=== PATIENT | male | born 1960 | race Caucasian/White ===

== ENCOUNTER 2017-06-28 13:52 | Emergency (ER) | payer OTHER ==
--- NOTE | 2017-06-28 16:16 | ER Document Report ---
HPI - HPI Patient complains to provider of: Bruise to right ankle injury to right calf a week ago no injury to ankle Onset: Yesterday Onset/Duration: Gradual Quality of pain: No pain - No pain in ankle mild pain in right calf Pain Level: Denies Context: Patient states he has been seen in the ED because he has a right swollen bruised ankle but he did not injure his ankle he states that he pulled a calf muscle about a week and a half ago and then he lunged on a curb last Saturday and then gradually he developed this bruise on his ankle. He denies any pain at all to his ankle. States he thought maybe it was a poisonous spider bite or a blood clot in his ankle. Temperature 98.2 pulse 66 respirations 18 pulse ox 96% blood pressure 123/83 in [place]. Associated Symptoms: Other - Mild tenderness to right calf no pain in right ankle or discoloration is Exacerbated by: Denies Relieved by: Denies Similar symptoms previously: No Recently seen / treated by doctor: No - ROS ROS below otherwise negative: Yes - CONSTITUTIONAL Constitutional: DENIES: Fever, Chills - EENT EENT: DENIES: Sore Throat, Ear Pain, Nasal Drainage-Clear, Nasal Drainage- Purulent, Congestion, Eye problems - CARDIOVASCULAR Cardiovascular: DENIES: Chest pain - RESPIRATORY Respiratory: DENIES: Trouble Breathing, Coughing - GASTROINTESTINAL Gastrointestinal: DENIES: Abdominal Pain, Nausea, Patient vomiting, Diarrhea, Constipation, Black / Bloody Stools - URINARY Urinary: DENIES: Dysuria, Urgency, Frequency - REPRODUCTIVE Reproductive: DENIES: :, Postmenopausal, Abnormal bleeding / discharge - MUSCULOSKELETAL Musculoskeletal: REPORTS: Extremity pain - Mild tenderness to right calf. DENIES: Back Pain, Neck Pain, Swelling - DERM Skin Color: Ecchymosis - Right ankle Skin Problems: None Past Medical History - General Information source: Patient - Social History Smoking Status: Former Smoker Cigarette use (# per day): No Chew tobacco use (# tins/day): No Smoking Education Provided: No Frequency of alcohol use: Occasional Drug Abuse: None Occupation: Retired Lives with: Spouse/Significant other Family History: Reviewed & Not Pertinent Patient has suicidal ideation: No Patient has homicidal ideation: No - Medical History Medical History: Other - Rheumatic fever as a child - Past Medical History Cardiac Medical History: Reports: None Pulmonary Medical History: Reports: None EENT Medical History: Reports: None Neurological Medical History: Reports: None Endocrine Medical History: Reports: None Renal/ Medical History: Reports: None Malignancy Medical History: Reports None GI Medical History: Reports: None Musculoskeltal Medical History: Reports Hx Arthritis, Reports Hx Musculoskeletal Deformity, Reports Hx Musculoskeletal Trauma Skin Medical History: Reports None Psychiatric Medical History: Reports: None Traumatic Medical History: Reports: Hx Fractures - Arms and thumb Infectious Medical History: Reports: None Past Surgical History: Reports: Hx Adenoidectomy, Hx Tonsillectomy - Immunizations Immunizations up to date: Yes Hx Diphtheria, Pertussis, Tetanus Vaccination: Yes Vertical Provider Document - CONSTITUTIONAL Agree With Documented VS: Yes Exam Limitations: No Limitations General Appearance: WD/WN, No Apparent Distress - INFECTION CONTROL TRAVEL OUTSIDE OF THE [place] IN LAST 30 DAYS: No - HEENT HEENT: Atraumatic, Normal ENT Exam, Normocephalic, PERRLA - NECK Neck: Normal Inspection, Supple, Thyroid Normal - RESPIRATORY Respiratory: Breath Sounds Normal, No Respiratory Distress, Chest Non-Tender - CARDIOVASCULAR Cardiovascular: Regular Rate, Regular Rhythm, No Murmur - BACK Back: Normal Inspection - MUSCULOSKELETAL/EXTREMETIES Musculoskeletal/Extremeties: MAEW, FROM, Tender - right calf medial, Eccymosis - right ankle - NEURO Level of Consciousness: Awake, Alert, Appropriate Motor/Sensory: No Motor Deficit, No Sensory Deficit, No Pronator Drift Deep Tendon Reflexes: 2+ - DERM Integumentary: Warm, Dry, No Rash Course - Re-evaluation Re-evalutation: 06/28/17 20:11 Patient denied any pain except for to palpation to the right calf medial aspect. There was no tenderness or pain to the right ankle or foot where the ecchymotic area was. Discussed with patient how if you have a bruise on the upper leg it can drop down and it looks like there is a bruise on the ankle but it is not a new injury. Discharge - Discharge Clinical Impression: eccymosis to right ankle no injury, Tenderness of right calf Condition: Stable Disposition: HOME, SELF-CARE Instructions: Family Physicians / Practices Additional Instructions: You have a ecchymotic area to your right ankle with no injury to your ankle. When you injure your leg or calf, the blood will slowly drop to your ankle before disappearing sometimes. The body will absorb this blood in your subcutaneous tissue. There are no large veins in your ankle that you need to worry about a blood clot. This is an old spider bite or infection. If you develop tenderness fever or drainage in this area then you would need to have it reevaluated at this time it is just ecchymotic area under the skin and does not need treatment. Ice & Elevation Apply ice packs frequently against the painful area. Many different schedules are recommended, such as "20 minutes on, 20 minutes off" or "one hour ice, two hours rest." If you need to work, you may need to go longer between ice treatments. You should plan to have the area ice packed AT LEAST one- fourth of the time. The ice should be applied over the wrap, tape, or splint, or over a layer of cloth -- not directly against the skin. Some ice bags have a built-in cloth and can be put directly on the skin. Your injured part should be elevated as much as possible over the next 48 hours. Try to keep the injury above the level of the heart. Avoid use of the injured area. Elevation and rest will decrease the swelling. FOLLOW-UP CARE: If you have been referred to a physician for follow-up care, call the physician s office for an appointment as you were instructed or within the next two days. If you experience worsening or a significant change in your symptoms, notify the physician immediately or return to the Emergency Department at any time for re-evaluation.
[2017-06-28 16:39] VITALS: BP 121/72
== END 2017-06-28 16:39 | disposition home or self-care (01) ==
LOC: ER 13:52
DX: S90.01XA Contusion of right ankle, initial encounter (principal); M79.604 Pain in right leg; R50.9 Fever, unspecified; X58.XXXA Exposure to other specified factors, initial encounter; Z87.891 Personal history of nicotine dependence
CPT/HCPCS: 99283

== ENCOUNTER 2017-06-29 20:07 | Emergency (ER) | payer OTHER ==
[2017-06-29 20:20] VITALS: BP 130/88
--- NOTE | 2017-06-29 20:57 | ER Document Report ---
HPI - HPI Patient complains to provider of: Ankle bruising Pain Level: 2 Context: Patient is a 57-year-old male who returns emergency department after being evaluated here yesterday complaining of worsening bruising in his right ankle. Patient states that he pulled his calf muscle a couple of days ago and since then has had bruising in his ankle. He was told yesterday that it is pool secondary to gravity Ing from his previous injury. He denies any reinjury within the past 24 hours, any pain in his ankle. States that his calf strain is improving and he has been walking around on it like it does not hurt at all since he was discharged yesterday. - REPRODUCTIVE Reproductive: DENIES: : - MUSCULOSKELETAL Musculoskeletal: REPORTS: Extremity pain Past Medical History - Social History Smoking Status: Unknown if Ever Smoked Family History: Reviewed & Not Pertinent Patient has suicidal ideation: No Patient has homicidal ideation: No Renal/ Medical History: Denies: Hx Peritoneal Dialysis Musculoskeltal Medical History: Reports Hx Arthritis, Reports Hx Musculoskeletal Deformity, Reports Hx Musculoskeletal Trauma Traumatic Medical History: Reports: Hx Fractures - Arms and thumb Past Surgical History: Reports: Hx Adenoidectomy, Hx Tonsillectomy - Immunizations Immunizations up to date: Yes Hx Diphtheria, Pertussis, Tetanus Vaccination: Yes Vertical Provider Document - CONSTITUTIONAL Agree With Documented VS: Yes Notes: PHYSICAL EXAM GENERAL: Alert, interacts well. EXTREMITIES: Moves all 4 extremities spontaneously. Right ankle with ecchymosis at the base of the heel as well as along the medial malleolus that is nontender to palpation 1+ pitting edema below the calf, dorsalis pedis pulses 2/4 bilaterally. No cyanosis. Ankle full range of motion nontender knee full range of motion nontender negative Homans sign NEUROLOGICAL: Alert and oriented x4. Normal speech. PSYCH: Normal affect, normal mood. SKIN: Warm, dry, normal turgor, no erythema no rashes or lesions noted. - INFECTION CONTROL TRAVEL OUTSIDE OF THE [place] IN LAST 30 DAYS: No - RESPIRATORY O2 Sat by Pulse Oximetry: 98 Course - Re-evaluation Re-evalutation: 06/29/17 20:55 Patient is a 57-year-old male who returns with worsening ecchymosis after a muscle strain of his calf. He has been ambulating without any difficulty. Will score 0. Patient declining any x-ray and ultrasound would have to be called in. Low clinical suspicion for DVT given absence of risk factors and presence of muscle strain diagnoses. Patient declining an outpatient ultrasound and will follow up with primary care. - Vital Signs Vital signs: Temp Pulse Resp BP Pulse Ox 98.3 F 76 14 130/88 H 98 06/29/17 20:19 06/29/17 20:19 06/29/17 20:19 06/29/17 20:19 06/29/17 20:19 Discharge - Discharge Clinical Impression: Tenderness of right calf Condition: Good Disposition: HOME, SELF-CARE Instructions: Contusion ([facility]), Muscle Strain ([facility])
== END 2017-06-29 20:59 | disposition home or self-care (01) ==
LOC: ER 20:07
DX: S90.01XA Contusion of right ankle, initial encounter (principal); M79.604 Pain in right leg; X58.XXXA Exposure to other specified factors, initial encounter
CPT/HCPCS: 99283

== ENCOUNTER → 2019-01-21 | Outpatient (CLI) | payer OTHER ==
--- NOTE | 2019-01-21 14:55 | RADIOLOGY REPORT (SQ) ---
EXAM DESCRIPTION: MRI LT LOWER JOINT WITHOUT COMPLETED DATE/TIME: 01/21/2019 9:44 am REASON FOR STUDY: M25.572 PAIN IN LEFT ANKLE AND JOINTS OF LEFT FOOT M25.572 PAIN IN LEFT ANKLE AND JOINTS OF LEFT FOOT COMPARISON: None. TECHNIQUE: Left ankle images acquired and stored on PACS. Multiplanar images include fat sensitive s equences as T1, fluid sensitive sequences as FST2/STIR, cartilage sensitive sequences as FSPD, and gr adient echo sequences. LIMITATIONS: None. FINDINGS: BONE MARROW: No alteration of signal to suggest marrow replacement or edema. No occult fra cture. No large osteophytes. EFFUSIONS: No subtalar or tibiotalar effusions. No loose bodies. OSSEOUS ARTICULATIONS: Mild subchondral cysts along the anterior calcaneal process. This looks like arthropathy in the articulation with the adjacent cuboid, which also shows evidence of subchondral cy stic change. No bulky osteophytes or erosions. No subluxation or dislocation or ankylosis evident. TALAR DOME AND TIBIAL PLAFOND: Subchondral cysts and edema in the tibial plafond anteriorly and poste riorly. Mortise looks mildly narrowed. No talar dome lesions appreciated. ACHILLES TENDON: Intact without partial or full-thickness tear. No adjacent bursal fluid or edema. TIBIALIS ANTERIOR TENDON: Intact without edema at the 1st MT attachment. TIBIALIS POSTERIOR TENDON: Normal morphology and no edema at the navicular attachment. No tendon biggs th fluid. FLEXOR HALLUCIS LONGUS AND FLEXOR DIGITORUM TENDONS: Normal morphology and no tendon sheath fluid. No edema of the os trigonum. PERONEUS LONGUS AND BREVIS TENDON: Normal morphology and no tendon sheath fluid. No subluxation. ATFL, CFL, PTFL: Intact. No thickening or signal alteration. No theresa-ligamentous fluid. DELTOID LIGAMENT: Mild scar in the deep fibers. TARSAL TUNNEL: No masses. No muscle atrophy. SINUS TARSI: No fluid. No reactive marrow edema or erosions. PLANTAR FASCIA: Very subtle thickening at origin correlate with symptoms. ADJACENT SOFT TISSUES: Skin surface marker overlies the anterolateral ankle. There is a small mass d eep to this level, hyperintense T2. This mass measures just under 1 cm, lies in the subcutaneous tis sues over the extensor digitorum tendons. Deep to the tendons, possible additional minimal ganglion. OTHER: No other significant finding. IMPRESSION: 1. Mild arthropathy as described. Tibia talar and calcaneal cuboid particularly. 2. Suspect ganglia about the extensor digitorum tendons. 3. Other findings as above. TECHNICAL DOCUMENTATION: JOB ID: [id number] [employer]- All Rights Reserved Reading location - IP/workstation name: [email or web address]
== END ==
LOC: RAD 09:00
PROVIDERS: ATTEND Orthopaedic Surgery Sports Medicine
DX: M25.572 Pain in left ankle and joints of left foot (principal)

== ENCOUNTER 2020-02-10 20:44 | Inpatient (IN) | payer OTHER ==
[2020-02-10] MEDS ORDERED: NORMAL SALINE 1000 ML 1,000 ML IV ONE (22:58)
--- NOTE | 2020-02-10 22:59 | ER Document Report ---
ED Medical Screen (RME) - General Chief Complaint: Epigastric Pain Stated Complaint: ABDOMINAL PAIN Time Seen by Provider: 02/10/20 22:57 Primary Care Provider: AZAEL BEJARANO MD [Primary Care Provider] - Follow up as needed Mode of Arrival: Ambulatory Information source: Patient Notes: Patient presents with a 6-week history of right upper quadrant abdominal tenderness that worsened over the past 3 days. Patient denies any fever, nausea or vomiting. Patient states he had outpatient blood work as well as an ultrasound and was notified by his doctor that he should present here for concerns about problems with his gallbladder. Patient denies any significant medical history. Patient has been n.p.o. since 6 PM. I have greeted and performed a rapid initial assessment of this patient. A comprehensive ED assessment and evaluation of the patient, analysis of test results and completion of the medical decision making process will be conducted by additional ED providers. TRAVEL OUTSIDE OF THE [place] IN LAST 30 DAYS: No - Related Data Allergies/Adverse Reactions: No Known Allergies Allergy (Verified 02/10/20 22:57) Past Medical History Renal/ Medical History: Denies: Hx Peritoneal Dialysis Musculoskeltal Medical History: Reports Hx Arthritis, Reports Hx Musculoskeletal Deformity, Reports Hx Musculoskeletal Trauma Traumatic Medical History: Reports: Hx Fractures - Arms and thumb Past Surgical History: Reports: Hx Adenoidectomy, Hx Tonsillectomy - Immunizations Immunizations up to date: Yes Hx Diphtheria, Pertussis, Tetanus Vaccination: Yes Physical Exam - Vital signs Vitals: Temp Pulse Resp BP Pulse Ox 98.4 F 87 14 139/82 H 99 02/10/20 20:52 02/10/20 20:52 02/10/20 20:52 02/10/20 20:52 02/10/20 20:52 - Abdominal Tenderness: Tender - Right upper quadrant tenderness Course - Vital Signs Vital signs: Temp Pulse Resp BP Pulse Ox 98.4 F 87 14 139/82 H 99 02/10/20 20:52 02/10/20 20:52 02/10/20 20:52 02/10/20 20:52 02/10/20 20:52 Doctor's Discharge - Discharge Referrals: AZAEL BEJARANO MD [Primary Care Provider] - Follow up as needed
[2020-02-11 03:32] LABS: ABSOLUTE BASOPHILS # (AUTO) 0.1 10^3/uL (0.0-0.2); ABSOLUTE EOSINOPHILS # (AUTO) 0.3 10^3/uL (0.0-0.6); ABSOLUTE LYMPHOCYTES (AUTO) 2.4 10^3/uL (0.5-4.7); ABSOLUTE MONOCYTES (AUTO) 0.4 10^3/uL (0.1-1.4); ABSOLUTE NEUT (AUTO) 4.1 10^3/uL (1.7-8.2); BASOPHILS % (AUTO) 1.2 % (0-2); EOSINOPHILS % (AUTO) 4.6 % (0-6); HEMATOCRIT 44.4 % (37.9-51.0); HEMOGLOBIN 15.2 g/dL (13.5-17.0); LYMPHOCYTES % (AUTO) 33.4 % (13-45); MEAN CORPUSCULAR HEMOGLOBIN 29.1 pg (27.0-33.4); MEAN CORPUSCULAR HGB CONC 34.2 g/dL (32.0-36.0); MEAN CORPUSCULAR VOLUME 85 fl (80-97); MONOCYTES % (AUTO) 5.2 % (3-13); PLATELET COUNT 266 10^3/uL (150-450); RED BLOOD COUNT 5.22 10^6/uL (4.35-5.55); RED CELL DISTRIBUTION WIDTH 13.7 % (11.5-14.0); SEGMENTED NEUTROPHILS % (AUTO) 55.6 % (42-78); TOTAL CELLS COUNTED % (AUTO) 100 %; WHITE BLOOD COUNT 7.3 10^3/uL (4.0-10.5)
[2020-02-11 03:45] LABS: ALBUMIN 4.3 g/dL (3.5-5.0); ALKALINE PHOSPHATASE 64 U/L (38-126); ANION GAP 10 (5-19); ASPARTATE AMINO TRANSFERASE 22 U/L (17-59); BILIRUBIN,TOTAL 0.6 mg/dL (0.2-1.3); BLOOD UREA NITROGEN 13 mg/dL (7-20); CALCIUM 9.8 mg/dL (8.4-10.2); CARBON DIOXIDE 26 mmol/L (22-30); CHLORIDE 104 mmol/L (98-107); GLUCOSE 101 mg/dL (75-110); POTASSIUM 5.2 mmol/L (3.6-5.0); TOTAL PROTEIN 7.1 g/dL (6.3-8.2)
[2020-02-11] MEDS ORDERED: PIPERACILLIN/TAZOBACTAM 3.375 GM VIAL IV ONE ×2 (04:08→06:28)
--- NOTE | 2020-02-11 04:12 | ER Document Report ---
Entered by ELMER WRIGHT SCRIBE 02/11/20 0340 Acting as scribe for:MEY GREENWOOD IV, MD ED GI/ - General Chief Complaint: Abdominal Pain Stated Complaint: ABDOMINAL PAIN Time Seen by Provider: 02/10/20 22:57 Primary Care Provider: AZAEL BEJARANO MD [Primary Care Provider] - Follow up as needed Mode of Arrival: Ambulatory Information source: Patient Notes: This 59 year old male patient presents to the ED today with complaints of RUQ a bdominal pain for the past x6 weeks, worse in the last x3 days after eating chili and sausage. Patient states that the pain is exacerbated by food and deep breaths. He had an outpatient gallbladder ultrasound done yesterday that shows a distended gallbladder with stones and wall thickening. Denies fever, nausea, or vomiting. Patient does not have a regular doctor and has been going to local urgent care facilities. Last meal was around 1800 yesterday evening. TRAVEL OUTSIDE OF THE [place] IN LAST 30 DAYS: No - Related Data Allergies/Adverse Reactions: No Known Allergies Allergy (Verified 02/10/20 22:57) Past Medical History - General Information source: Patient, [facility] Records - Social History Smoking Status: Former Smoker Smoking Education Provided: No Frequency of alcohol use: Social Drug Abuse: None Family History: Reviewed & Not Pertinent Patient has suicidal ideation: No Patient has homicidal ideation: No Musculoskeletal Medical History: Reports Hx Arthritis - RA, Reports Hx Musculoskeletal Deformity, Reports Hx Musculoskeletal Trauma Traumatic Medical History: Reports: Hx Fractures - Arms and thumb Past Surgical History: Reports: Hx Adenoidectomy, Hx Tonsillectomy - Immunizations Immunizations up to date: Yes Hx Diphtheria, Pertussis, Tetanus Vaccination: Yes Review of Systems - Review of Systems Constitutional: See HPI. denies: Fever EENT: No symptoms reported Cardiovascular: No symptoms reported Respiratory: No symptoms reported Gastrointestinal: See HPI, Abdominal pain. denies: Nausea, Vomiting Physical Exam - Vital signs Vitals: Temp Pulse Resp BP Pulse Ox 98.4 F 87 14 139/82 H 99 02/10/20 20:52 02/10/20 20:52 02/10/20 20:52 02/10/20 20:52 02/10/20 20:52 - General General appearance: Alert In distress: None - HEENT Head: Normocephalic, Atraumatic Eyes: Normal Pupils: PERRL - Respiratory Respiratory status: No respiratory distress Chest status: Nontender Breath sounds: Normal Chest palpation: Normal - Cardiovascular Rhythm: Regular Heart sounds: Normal auscultation Murmur: No Friction rub: No Gallop: None auscultated - Abdominal Inspection: Normal Distension: No distension Bowel sounds: Normal Tenderness: Tender - RUQ tenderness to palpation, Judge's sign, Other - Abdomen soft Organomegaly: No organomegaly - Back Back: Normal, Nontender - Extremities General upper extremity: Normal inspection General lower extremity: Normal inspection - Neurological Neuro grossly intact: Yes Orientation: AAOx4 [place] Coma Scale Eye Opening: Spontaneous Elliott Coma Scale Verbal: Oriented Elliott Coma Scale Motor: Obeys Commands Elliott Coma Scale Total: 15 - Psychological Associated symptoms: Normal affect, Normal mood - Skin Skin Temperature: Warm Skin Moisture: Dry Skin Color: Normal Course - Re-evaluation Re-evalutation: 02/11/20 04:09 Results of ED MSE discussed with patient. Results also discussed with patient's daughter. All questions were answered. Patient was informed that he was going to be admitted for treatment of acute cholecystitis and cholecystectomy. - Vital Signs Vital signs: Temp Pulse Resp BP Pulse Ox 98.0 F 88 14 104/69 96 02/11/20 00:16 02/11/20 00:16 02/11/20 00:16 02/11/20 00:16 02/11/20 00:16 - Laboratory Result Diagrams: 02/11/20 03:20 02/11/20 03:20 Laboratory results interpreted by me: 02/11/20 03:20 Potassium 5.2 H - Diagnostic Test Radiology reviewed: Reports reviewed - Consults Dr. Montesinos Time consulted: 04:10 - agreed to admit pt, recommended dose of Zosyn Reason for consultation: 02/11/20 04:11 acute cholecystitis Consulted provider: will see as inpatient Discharge - Discharge Clinical Impression: Acute cholecystitis Condition: Stable Disposition: ADMITTED INPATIENT Admitting Provider: Surgicalist - Dr. Montesinos Unit Admitted: Surgical Floor Referrals: AZAEL BEJARANO MD [Primary Care Provider] - Follow up as needed I personally performed the services described in the documentation, reviewed and edited the documentation which was dictated to the scribe in my presence, and it accurately records my words and actions.
[2020-02-11 04:35] LABS: APPEARANCE,URINE CLEAR; BILIRUBIN,URINE NEGATIVE (NEGATIVE); COLOR,URINE YELLOW; GLUCOSE, URINE NEGATIVE (NEGATIVE); KETONES,URINE NEGATIVE (NEGATIVE); LEUKOCYTE ESTERASE,URINE NEGATIVE (NEGATIVE); NITRITE,URINE NEGATIVE (NEGATIVE); PROTEIN,URINE NEGATIVE (NEGATIVE); URINE SPECIFIC GRAVITY 1.011; UROBILINOGEN,URINE NEGATIVE mg/dL (<2.0)
[2020-02-11] MEDS ORDERED: DEXTROSE 40% GEL 15 GM TUBE PO PRN ×4 (05:37→21:28)
[2020-02-11] MEDS ORDERED: GLUCAGON,HUMAN RECOMB 1 MG INJ SUBCUT PRN ×2 (05:37→21:28)
[2020-02-11] MEDS ORDERED: ONDANSETRON HCL INJ/PF 4 MG/2 ML SDV IV PRN ×2 (05:37→14:30)
[2020-02-11] MEDS ORDERED: DEXTROSE 50%-WATER 25 GM/50 ML DISP.SYRIN IV PRN ×4 (05:37→21:28)
[2020-02-11] MEDS ORDERED: DEXTROSE 5%-LACTATED RINGERS 1,000 ML IV PRN (05:37)
--- NOTE | 2020-02-11 06:21 | PDOC H&P ---
History of Present Illness Admission Date/PCP: 02/11/20 04:34 AZAEL BEJARANO MD Patient complains of: Right upper quadrant pain, constant History of Present Illness: JONA MCGREGOR is a 59 year old male with a 1 month history of intermittent right upper quadrant pain. The patient reports that previously it would come and go. He was diagnosed with gastritis and/or gastric ulcers. He was placed on medications, which did not help. Patient continued to have pain. For the last 3 to 4 days, his pain has increased in severity. He reports an acute increase in symptomatology after eating sausage pizza. Currently rates his pain is 8 out of 10. It is unrelenting, and constant. It does not radiate. It is located in his right upper quadrant, at the costal margin, midclavicular line. The patient denies chest pain, shortness of breath, fevers, chills, nausea, vomiting, diarrhea, constipation, hematochezia, hematemesis, melena, headache, dizziness, blurry vision, orthostasis. The patient has a history of rheumatoid arthritis, but does not take any medications for it. He reports that he is otherwise healthy. Past Medical History Musculoskeltal Medical History: Reports: Arthritis - RA Past Surgical History Past Surgical History: Reports: Tonsillectomy Social History Smoking Status: Former Smoker Hx Recreational Drug Use: No Hx Prescription Drug Abuse: No Family History Family History: Reviewed & Not Pertinent Parental Family History Reviewed: Yes Children Family History Reviewed: Yes Sibling(s) Family History Reviewed.: Yes Medication/Allergy Allergies/Adverse Reactions: No Known Allergies Allergy (Verified 02/10/20 22:57) Review of Systems Constitutional: ABSENT: anorexia, chills, fatigue, fever(s), weakness Eyes: ABSENT: visual disturbances Ears: ABSENT: hearing changes Nose, Mouth, and Throat: ABSENT: sore throat Cardiovascular: ABSENT: chest pain Respiratory: ABSENT: cough, dyspnea Gastrointestinal: PRESENT: abdominal pain. ABSENT: diarrhea, dysphagia, hematemesis, hematochezia, melena, nausea, vomiting Genitourinary: ABSENT: dysuria Musculoskeletal: ABSENT: back pain Integumentary: ABSENT: pruritus, rash Neurological: ABSENT: confusion, convulsions, dizziness Psychiatric: ABSENT: anxiety, depression Endocrine: ABSENT: cold intolerance, heat intolerance Hematologic/Lymphatic: ABSENT: easy bleeding, easy bruising Physical Exam Vital Signs: Temp Pulse Resp BP Pulse Ox 98.0 F 88 14 104/69 96 02/11/20 00:16 02/11/20 00:16 02/11/20 00:16 02/11/20 00:16 02/11/20 00:16 Intake & Output 02/09/20 02/10/20 02/11/20 06:59 06:59 06:59 Weight 99 kg General appearance: PRESENT: no acute distress, cooperative Head exam: PRESENT: atraumatic, normocephalic Eye exam: PRESENT: EOMI, PERRLA. ABSENT: scleral icterus Mouth exam: PRESENT: moist, neck supple Neck exam: ABSENT: meningismus, tenderness, thyromegaly, tracheal deviation Respiratory exam: PRESENT: unlabored. ABSENT: tachypnea, wheezes Cardiovascular exam: ABSENT: tachycardia Vascular exam: PRESENT: normal capillary refill. ABSENT: pallor GI/Abdominal exam: PRESENT: Judge's sign, soft, tenderness - right Upper quadrant Rectal exam: PRESENT: deferred Extremities exam: ABSENT: clubbing Musculoskeletal exam: ABSENT: deformity Neurological exam: PRESENT: alert, awake, oriented to person, oriented to place, oriented to time, oriented to situation, CN II-XII grossly intact Psychiatric exam: ABSENT: agitated, anxious, depressed Focused psych exam: ABSENT: delusional Skin exam: ABSENT: cyanosis, erythema, jaundice Results Laboratory Results: 02/11/20 03:20 02/11/20 03:20 02/11/20 02/11/20 02/11/20 03:20 03:20 03:20 WBC 7.3 RBC 5.22 Hgb 15.2 Hct 44.4 MCV 85 MCH 29.1 MCHC 34.2 RDW 13.7 Plt Count 266 Seg Neutrophils % 55.6 Sodium 139.7 Potassium 5.2 H Chloride 104 Carbon Dioxide 26 Anion Gap 10 BUN 13 Creatinine 0.90 Est GFR ( Amer) > 60 Glucose 101 Calcium 9.8 Total Bilirubin 0.6 AST 22 Alkaline Phosphatase 64 Total Protein 7.1 Albumin 4.3 Lipase 85.1 Urine Color YELLOW Urine Appearance CLEAR Urine pH 6.0 Ur Specific [place] 1.011 Urine Protein NEGATIVE Urine Glucose (UA) NEGATIVE Urine Ketones NEGATIVE Urine Blood SMALL H Urine Nitrite NEGATIVE Ur Leukocyte Esterase NEGATIVE Urine WBC (Auto) 0 Urine RBC (Auto) 2 Assessment & Plan - Diagnosis (1) Acute cholecystitis Is this a current diagnosis for this admission?: Yes - Time Anticipated Discharge Disposition: Home, Self Care Anticipated Discharge Timeframe: within 48 hours - Plan Summary Plan Summary: A 59-year-old male with a 1 month history of intermittent right upper quadrant pain. The patient's pain has progressed to a constant, severe, stabbing pain. An ultrasound was performed showing thickened gallbladder wall, with normal biliary ductal anatomy. His LFTs are normal. He does have abdominal tenderness in the right upper quadrant. I believe the patient is experiencing acute cholecystitis. I have recommended cholecystectomy as treatment. The patient has agreed to this. Risks/benefits discussed, informed consent obtained, and all questions answered. Start Zosyn, start IV fluids, remain n.p.o.
[2020-02-11] MEDS: KETOROLAC TROMETHAMINE INJ/PF 30 MG/1 ML SDV IV SCH ×3 (09:02→21:21)
[2020-02-11] MEDS: PIPERACILLIN SODIUM/TAZOBACTAM 3.375 GM in NORMAL SALINE 100 ML IV SCH ×3 (09:03→17:03)
[2020-02-11] MEDS: FAMOTIDINE INJ/PF 20 MG/2 ML SDV IV SCH ×2 (10:08→21:22)
[2020-02-11] MEDS ORDERED: DEXTROSE 5%-LACTATED RINGERS 1,000 ML IV ONE (10:15)
[2020-02-11] MEDS: MORPHINE SULFATE 10 MG/ML INJ IV PRN ×2 (10:29→16:42)
[2020-02-11] MEDS ORDERED: GLYCOPYRROLATE 1 MG/5 ML VIAL ONE (14:29)
[2020-02-11] MEDS ORDERED: NEOSTIGMINE METHYLSULFATE 10 MG/10 ML VIAL ONE (14:29)
[2020-02-11] MEDS: DEXTROSE 5%-LACTATED RINGERS 1,000 ML IV PRN ×2 (15:27→22:26)
[2020-02-12] MEDS: PIPERACILLIN SODIUM/TAZOBACTAM 3.375 GM in NORMAL SALINE 100 ML IV SCH ×5 (05:15→17:23)
[2020-02-12] MEDS: KETOROLAC TROMETHAMINE INJ/PF 30 MG/1 ML SDV IV SCH ×3 (05:15→21:13)
[2020-02-12] MEDS: DEXTROSE 5%-LACTATED RINGERS 1,000 ML IV PRN (05:16)
[2020-02-12 05:26] LABS: ABSOLUTE BASOPHILS # (AUTO) 0.1 10^3/uL (0.0-0.2); ABSOLUTE EOSINOPHILS # (AUTO) 0.2 10^3/uL (0.0-0.6); ABSOLUTE MONOCYTES (AUTO) 0.4 10^3/uL (0.1-1.4); ABSOLUTE NEUT (AUTO) 3.1 10^3/uL (1.7-8.2); BASOPHILS % (AUTO) 1.4 % (0-2); HEMATOCRIT 40.9 % (37.9-51.0); HEMOGLOBIN 13.8 g/dL (13.5-17.0); LYMPHOCYTES % (AUTO) 34.6 % (13-45); MEAN CORPUSCULAR HGB CONC 33.9 g/dL (32.0-36.0); MEAN CORPUSCULAR VOLUME 86 fl (80-97); MONOCYTES % (AUTO) 6.7 % (3-13); PLATELET COUNT 236 10^3/uL (150-450); RED BLOOD COUNT 4.78 10^6/uL (4.35-5.55); RED CELL DISTRIBUTION WIDTH 13.6 % (11.5-14.0); SEGMENTED NEUTROPHILS % (AUTO) 53.3 % (42-78); TOTAL CELLS COUNTED % (AUTO) 100 %; WHITE BLOOD COUNT 5.9 10^3/uL (4.0-10.5)
[2020-02-12 05:48] LABS: ALBUMIN 3.5 g/dL (3.5-5.0); ALKALINE PHOSPHATASE 51 U/L (38-126); ANION GAP 7 (5-19); ASPARTATE AMINO TRANSFERASE 19 U/L (17-59); BILIRUBIN,DIRECT 0.1 mg/dL (0.0-0.4); BILIRUBIN,TOTAL 0.8 mg/dL (0.2-1.3); BLOOD UREA NITROGEN 9 mg/dL (7-20); CALCIUM 8.9 mg/dL (8.4-10.2); CARBON DIOXIDE 26 mmol/L (22-30); CHLORIDE 108 mmol/L (98-107); GLUCOSE 125 mg/dL (75-110); POTASSIUM 4.3 mmol/L (3.6-5.0); TOTAL PROTEIN 5.9 g/dL (6.3-8.2)
[2020-02-12] MEDS ORDERED: LIDOCAINE 2% INJ-PF (100 MG/5 ML) SYRINGE ONE (06:50)
[2020-02-12] MEDS ORDERED: KETOROLAC TROMETHAMINE 60 MG/2 ML SDV ONE (06:50)
[2020-02-12] MEDS ORDERED: FENTANYL CITRATE INJ/PF 100 MCG/2 ML AMPUL ONE (06:50)
[2020-02-12] MEDS ORDERED: DEXAMETHASONE SOD PHOSPHATE INJ 4 MG/1 ML VIAL ONE (06:51)
[2020-02-12] MEDS ORDERED: ONDANSETRON HCL INJ/PF 4 MG/2 ML SDV ONE (06:51)
[2020-02-12] MEDS ORDERED: MIDAZOLAM 2 MG/2 ML INJ ONE (06:51)
[2020-02-12] MEDS ORDERED: PROPOFOL INJ 200 MG/20 ML VIAL IV ONE (06:51)
[2020-02-12] MEDS ORDERED: HYDROMORPHONE HCL INJ/PF 2 MG/ML AMPULE ONE (06:51)
[2020-02-12] MEDS ORDERED: BUPIVACAINE HCL 0.25% /EPINEPHRINE INJ/PF 30 ML SDV ONE (08:56)
[2020-02-12] MEDS ORDERED: BUPIVACAINE HCL 0.5%-EPI 1:200000 INJ/PF 30 ML VIAL ONE (09:05)
[2020-02-12] MEDS ORDERED: MEPERIDINE HCL/PF INJ 25 MG/1 ML DISP.SYRIN IV PRN (09:50)
[2020-02-12] MEDS ORDERED: PROMETHAZINE HCL INJ 25 MG/1 ML VIAL IV PRN ×2 (09:50)
[2020-02-12] MEDS ORDERED: MORPHINE SULFATE 10 MG/ML INJ IV PRN (09:50)
[2020-02-12] MEDS ORDERED: OXYCODONE-ACETAMINOPHEN 5-325 MG TABLET PO PRN ×2 (09:50)
[2020-02-12] MEDS ORDERED: FENTANYL CITRATE INJ/PF 100 MCG/2 ML AMPUL IV PRN ×3 (09:50)
[2020-02-12] MEDS ORDERED: DIPHENHYDRAMINE HCL 50 MG/ML VIAL IV PRN (09:50)
[2020-02-12] MEDS: FAMOTIDINE INJ/PF 20 MG/2 ML SDV IV SCH ×2 (10:56→21:13)
--- NOTE | 2020-02-12 11:58 | Operative Report ---
Operative Report DATE OF SURGERY: 02/12/20 PREOPERATIVE DIAGNOSIS: acute cholecystitis with cholelithiasis POSTOPERATIVE DIAGNOSIS: same, add gangrenous type OPERATION: Laparoscopic cholecystectomy; extensive lysis of adhesions SURGEON: CONCEPCION MENCHACA ANESTHESIA: GA - 20 mils of 1% lidocaine without epinephrine TISSUE REMOVED OR ALTERED: Gallbladder COMPLICATIONS: None ESTIMATED BLOOD LOSS: 30 mL's INTRAOPERATIVE FINDINGS: Severely inflamed gallbladder with necrosis of the wall, large amount of adhesions between gallbladder and omentum as well as colon PROCEDURE: The procedure was done in the operating room. The patient was placed in a supine position, general anesthesia induced by endotracheal intubation[, the abdomen was prepped and draped in usual fashion. An incision was made just above the umbilicus with a #15 blade, the skin was tented with towel clips and a 5 mm port with Optiview adapter and scope was inserted through the abdominal wall into the peritoneal cavity. CO2 pneumoperitoneum was obtained, under direct visualization a 12 mm port was inserted in the epigastrium and two 5 mm ports were placed in the right lateral quadrant of the abdomen under direct visualization. The patient was placed in steep reverse Trendelenburg position, the right side was elevated, and the right upper quadrant was inspected. The gallbladder was found to be severely inflamed, areas of necrosis were identified on the wall of the gallbladder, multiple adhesions were noted between the gallbladder and the greater omentum and colon. A painstaking dissection with hook cautery as well as peanut dissector was performed so that the gallbladder could be fully exposed; this was done by dividing all the lesions. Once this was accomplished, dissection of the gallbladder was began. the gallbladder fundus was grasped and the gallbladder was elevated and retroflexed; the cystic neck was identified, grasped, and pulled anterior to the patient's right with exposure of the triangle of Calot. The critical view of safety was obtained by dividing the peritoneal attachments of the gallbladder body both medially and laterally with a hook cautery. When this was accomplished, the hook cautery dissection was continued toward the cystic neck. An opening was then obtained posterior to the cystic duct which was enlarged with a peanut dissector and with a right angle dissector. Once the critical view of safety was obtained, the cystic duct was carefully dissected with a hook cautery and a space was developed between the cystic duct and cystic artery with a right angle dissector. The gallbladder was dissected from the liver bed using hook cautery at high settings. Because of the severe inflammation and necrosis, dissection of the gallbladder wall was somewhat slow and complicated. 1 tear of the gallbladder wall was noted with spillage of bile and small stones which were fully aspirated. Addition the anatomical plane between gallbladder and liver was not very well defined and this complicated further dissection. Once the dissection of the gallbladder from the liver bed was completed, this was extracted from the peritoneal cavity with an Endobag through the epigastric port. The pneumoperitoneum was then re-established, the gallbladder fossa was examined and multiple bleeders were identified and cauterized at high settings. No bile staining was seen. The right upper quadrant was then irrigated with 3 L of normal saline until clear. A large sheet of Surgicel was placed on the liver bed for hemostasis. A 15 mm Vincentian round Harvey drain was inserted through the epigastric port and extracted from the left upper quadrant abdominal port; it was placed in the gallbladder fossa under direct visualization and secured to the skin with a 2-0 nylon suture. The epigastric fascial defect was closed with a [id number] 0 Vicryl suture, placed with a fascia closure device under direct visualization, and left untied. All instruments were removed, the CO2 pneumoperitoneum was released, and all the ports were removed. The epigastric fascial defect was closed with the previously placed [id number] 0 Vicryl suture, all skin incisions were closed with a 4-0 PDS running subcuticular suture, and Dermabond was applied. The patient tolerated the p rocedure well, was extubated, and transferred to the recovery room in satisfactory conditions.
[2020-02-12] MEDS ORDERED: ONDANSETRON HCL INJ/PF 4 MG/2 ML SDV IV PRN (12:02)
[2020-02-12] MEDS ORDERED: HYDROMORPHONE HCL INJ/PF 2 MG/ML AMPULE IV PRN (12:02)
[2020-02-12] MEDS ORDERED: NORMAL SALINE 1000 ML 1,000 ML IV PRN (12:02)
[2020-02-12] MEDS ORDERED: KETOROLAC TROMETHAMINE INJ/PF 30 MG/1 ML SDV IV PRN (12:05)
[2020-02-12] MEDS: MORPHINE SULFATE 10 MG/ML INJ IV PRN ×2 (16:31→23:12)
[2020-02-13] MEDS: PIPERACILLIN SODIUM/TAZOBACTAM 3.375 GM in NORMAL SALINE 100 ML IV SCH ×5 (03:17→21:18)
[2020-02-13] MEDS: MORPHINE SULFATE 10 MG/ML INJ IV PRN (04:11)
[2020-02-13] MEDS: KETOROLAC TROMETHAMINE INJ/PF 30 MG/1 ML SDV IV SCH (06:32)
[2020-02-13 07:22] LABS: HEMATOCRIT 39.3 % (37.9-51.0); HEMOGLOBIN 13.5 g/dL (13.5-17.0); MEAN CORPUSCULAR HEMOGLOBIN 29.6 pg (27.0-33.4); MEAN CORPUSCULAR HGB CONC 34.3 g/dL (32.0-36.0); MEAN CORPUSCULAR VOLUME 86 fl (80-97); PLATELET COUNT 234 10^3/uL (150-450); RED BLOOD COUNT 4.56 10^6/uL (4.35-5.55); RED CELL DISTRIBUTION WIDTH 13.6 % (11.5-14.0)
[2020-02-13 07:50] LABS: ALBUMIN 3.9 g/dL (3.5-5.0); ALKALINE PHOSPHATASE 112 U/L (38-126); ANION GAP 9 (5-19); ASPARTATE AMINO TRANSFERASE 105 U/L (17-59); BILIRUBIN,DIRECT 0.1 mg/dL (0.0-0.4); BILIRUBIN,TOTAL 1.1 mg/dL (0.2-1.3); BLOOD UREA NITROGEN 8 mg/dL (7-20); CALCIUM 8.9 mg/dL (8.4-10.2); CARBON DIOXIDE 27 mmol/L (22-30); CHLORIDE 104 mmol/L (98-107); GLUCOSE 113 mg/dL (75-110); POTASSIUM 4.2 mmol/L (3.6-5.0); TOTAL PROTEIN 6.4 g/dL (6.3-8.2)
--- NOTE | 2020-02-13 10:00 | PDOC PROGRESS REPORT ---
Subjective Progress Note for:: 02/13/20 Subjective:: Patient comfortable, tolerating p.o. well, no complaints of Reason For Visit: ACUTE CHOLECYSTITIS WITH CHOLELOTHIASIS Physical Exam Vital Signs: Temp Pulse Resp BP Pulse Ox 98.5 F 94 19 136/70 H 97 02/13/20 07:23 02/13/20 07:23 02/13/20 07:23 02/13/20 07:23 02/13/20 07:23 Intake & Output 02/12/20 02/13/20 02/14/20 06:59 06:59 06:59 Intake Total 4900 4810 Output Total 2465 Balance 4900 2345 Weight 100 kg 100 kg General appearance: PRESENT: no acute distress Respiratory exam: PRESENT: clear to auscultation danita Cardiovascular exam: PRESENT: RRR GI/Abdominal exam: PRESENT: normal bowel sounds, soft, other - Not distended, not tender, or incisions are clean, dry, and intact; Harvey drain output serosanguineous fluid type Results Laboratory Results: 02/13/20 06:15 02/13/20 06:15 02/13/20 02/13/20 06:15 06:15 WBC 10.0 RBC 4.56 Hgb 13.5 Hct 39.3 MCV 86 MCH 29.6 MCHC 34.3 RDW 13.6 Plt Count 234 Sodium 139.9 Potassium 4.2 Chloride 104 Carbon Dioxide 27 Anion Gap 9 BUN 8 Creatinine 1.03 Est GFR ( Amer) > 60 Glucose 113 H Calcium 8.9 Total Bilirubin 1.1 AST 105 H Alkaline Phosphatase 112 Total Protein 6.4 Albumin 3.9 Assessment & Plan - Diagnosis (1) Gangrenous cholecystitis Is this a current diagnosis for this admission?: Yes - Time Anticipated Discharge Disposition: Home, Self Care Anticipated Discharge Timeframe: within 48 hours - Plan Summary Plan Summary: Assessment: Postoperative day #1 following laparoscopic cholecystectomy for gangrenous cholecystitis Vital signs stable, patient afebrile Blood work within normal limits with normal CBC and normal liver profile except for slight elevated AST ALT Harvey drain output serosanguineous approximately 30 mL per shift Physical exam unremarkable with abdomen soft, incisions clean, dry, and intact Plan: Stop IV fluids Stop IV narcotics Advance diet to low residue diet tonight Start oral Tylenol and Celebrex for pain Continue IV antibiotics Patient to be discharged in 48 hours
[2020-02-13] MEDS: FAMOTIDINE 20 MG TABLET PO SCH ×2 (10:02→21:19)
[2020-02-13] MEDS: CELECOXIB 100 MG CAPSULE PO SCH ×2 (11:12→17:05)
[2020-02-13] MEDS: ACETAMINOPHEN 325 MG TABLET PO PRN (15:28)
[2020-02-13] MEDS: TRAMADOL HCL 50 MG TABLET PO PRN (20:51)
[2020-02-14] MEDS: PIPERACILLIN SODIUM/TAZOBACTAM 3.375 GM in NORMAL SALINE 100 ML IV SCH ×3 (03:00→15:38)
[2020-02-14] MEDS: TRAMADOL HCL 50 MG TABLET PO PRN ×3 (04:40→17:42)
[2020-02-14 05:45] LABS: HEMOGLOBIN 12.4 g/dL (13.5-17.0); MEAN CORPUSCULAR HEMOGLOBIN 29.6 pg (27.0-33.4); MEAN CORPUSCULAR HGB CONC 34.4 g/dL (32.0-36.0); MEAN CORPUSCULAR VOLUME 86 fl (80-97); PLATELET COUNT 232 10^3/uL (150-450); RED CELL DISTRIBUTION WIDTH 13.8 % (11.5-14.0); WHITE BLOOD COUNT 6.9 10^3/uL (4.0-10.5)
[2020-02-14 06:09] LABS: ALBUMIN 3.4 g/dL (3.5-5.0); ALKALINE PHOSPHATASE 89 U/L (38-126); ANION GAP 8 (5-19); ASPARTATE AMINO TRANSFERASE 47 U/L (17-59); BILIRUBIN,DIRECT 0.3 mg/dL (0.0-0.4); BILIRUBIN,TOTAL 0.9 mg/dL (0.2-1.3); BLOOD UREA NITROGEN 9 mg/dL (7-20); CALCIUM 8.4 mg/dL (8.4-10.2); CARBON DIOXIDE 24 mmol/L (22-30); CHLORIDE 107 mmol/L (98-107); GLUCOSE 80 mg/dL (75-110); POTASSIUM 4.1 mmol/L (3.6-5.0); TOTAL PROTEIN 5.7 g/dL (6.3-8.2)
[2020-02-14] MEDS: FAMOTIDINE 20 MG TABLET PO SCH (09:03)
[2020-02-14] MEDS: CELECOXIB 100 MG CAPSULE PO SCH ×2 (09:03→17:44)
[2020-02-14] MEDS: ACETAMINOPHEN 325 MG TABLET PO PRN (09:20)
--- NOTE | 2020-02-14 17:52 | PDOC PROGRESS REPORT ---
Subjective Progress Note for:: 02/14/20 Subjective:: Patient comfortable, no complaints Reason For Visit: ACUTE CHOLECYSTITIS WITH CHOLELOTHIASIS Physical Exam Vital Signs: Temp Pulse Resp BP Pulse Ox 98.4 F 70 18 136/85 H 98 02/14/20 16:17 02/14/20 16:17 02/14/20 16:17 02/14/20 16:17 02/14/20 16:17 Intake & Output 02/13/20 02/14/20 02/15/20 06:59 06:59 06:59 Intake Total 4810 1800 860 Output Total 2465 1805 320 Balance 2345 -5 540 Weight 100 kg 100 kg General appearance: PRESENT: no acute distress GI/Abdominal exam: PRESENT: soft, other - Not distended not tender, Harvey drain in the right upper quadrant with serous fluid, all incisions clean dry, dry and intact Results Laboratory Results: 02/14/20 04:50 02/14/20 04:50 02/14/20 02/14/20 04:50 04:50 WBC 6.9 RBC 4.20 L Hgb 12.4 L Hct 36.0 L MCV 86 MCH 29.6 MCHC 34.4 RDW 13.8 Plt Count 232 Sodium 139.4 Potassium 4.1 Chloride 107 Carbon Dioxide 24 Anion Gap 8 BUN 9 Creatinine 0.87 Est GFR ( Amer) > 60 Glucose 80 Calcium 8.4 Total Bilirubin 0.9 AST 47 Alkaline Phosphatase 89 Total Protein 5.7 L Albumin 3.4 L Assessment & Plan - Diagnosis (1) Gangrenous cholecystitis Is this a current diagnosis for this admission?: Yes - Time Anticipated Discharge Disposition: Home, Self Care Anticipated Discharge Timeframe: today - Plan Summary Plan Summary: Assessment: Postop day #2 following laparoscopic cholecystectomy Patient stable Physical exam unremarkable Blood work unremarkable Harvey drain output about 20 mL a day with serous fluid Bowel function returned Plan: Home today Follow-up in the office in 2 weeks Empty Harvey drain bulb daily, record amount, and bring record to clinic No wound care needed Sponge bath only until the drain is in place, then the patient can shower Tylenol and naproxen as needed for pain by mouth Regular diet No heavy lifting straining for about 2 weeks or until office appointment Return to work in 2 weeks after office appointment
--- NOTE | 2020-02-14 17:57 | PDOC DISCHARGE SUMMARY ---
General - Admit/Disc Date/PCP Admission Date/Primary Care Provider: 02/11/20 04:34 AZAEL BEJARANO MD Discharge Date: 02/14/20 - Discharge Diagnosis Final Diagnosis: Acute gangrenous cholecystitis - Assessment Summary: Patient is a healthy 59-year-old male who presented to the hospital on February 10 with right upper quadrant pain, ultrasound gallbladder was done demonstrating cholelithiasis with cholecystitis. On February 13, the patient underwent laparoscopic cholecystectomy the procedure was uneventful uneventful, his postop course was unremarkable with normal blood work, tolerating p.o. well, vital signs were stable. On the day of discharge, the patient has no complaints, tolerating p.o. well, physical exam unremarkable, blood work within normal limits, Harvey drain output is about 30 mL's a day with serosanguinous fluid. The patient was discharged home on February 13 - Additional Information Resuscitation Status: Full Code Discharge Diet: Regular Discharge Activity: Activity As Tolerated, Balance Activity w/Rest, No tub bath - Until the drain is present, after dugan the patient can shower, Walk Frequently Referrals: CONCEPCION MENCHACA MD [ACTIVE STAFF] - (Gallbladder) Home Medications: Cranberry [Cranberry 400 mg Capsule] 400 mg PO DAILY 02/11/20 Acetaminophen [Tylenol 325 mg Tablet] 650 mg PO Q6HP PRN tablet 02/14/20 Additional Information: Follow-up in the office in 2 weeks Empty Harvey drain bulb daily, record amount, and bring record to clinic No wound care needed Sponge bath only until the drain is in place, afterward the patient can shower Tylenol and naproxen as needed for pain by mouth Regular diet No heavy lifting for straining for about 2 weeks or until office appointment Return to work in 2 weeks after office appointment History of Present Illiness History of Present Illness: JONA MCGREGOR is a 59 year old male Physical Exam Vital Signs: Temp Pulse Resp BP Pulse Ox 98.4 F 70 18 136/85 H 98 02/14/20 16:17 02/14/20 16:17 02/14/20 16:17 02/14/20 16:17 02/14/20 16:17 Intake & Output 02/13/20 02/14/20 02/15/20 06:59 06:59 06:59 Intake Total 4810 1800 860 Output Total 2465 1805 320 Balance 2345 -5 540 Weight 100 kg 100 kg Results Laboratory Results: WBC 6.9 10^3/uL (4.0-10.5) 02/14/20 04:50 RBC 4.20 10^6/uL (4.35-5.55) L 02/14/20 04:50 Hgb 12.4 g/dL (13.5-17.0) L 02/14/20 04:50 Hct 36.0 % (37.9-51.0) L 02/14/20 04:50 MCV 86 fl (80-97) 02/14/20 04:50 MCH 29.6 pg (27.0-33.4) 02/14/20 04:50 MCHC 34.4 g/dL (32.0-36.0) 02/14/20 04:50 RDW 13.8 % (11.5-14.0) 02/14/20 04:50 Plt Count 232 10^3/uL (150-450) 02/14/20 04:50 Lymph % (Auto) 34.6 % (13-45) 02/12/20 04:29 [place] % (Auto) 6.7 % (3-13) 02/12/20 04:29 Eos % (Auto) 4.0 % (0-6) 02/12/20 04:29 Baso % (Auto) 1.4 % (0-2) 02/12/20 04:29 Absolute Neuts (auto) 3.1 10^3/uL (1.7-8.2) 02/12/20 04:29 Absolute Lymphs (auto) 2.0 10^3/uL (0.5-4.7) 02/12/20 04:29 Absolute Monos (auto) 0.4 10^3/uL (0.1-1.4) 02/12/20 04:29 Absolute Eos (auto) 0.2 10^3/uL (0.0-0.6) 02/12/20 04:29 Absolute Basos (auto) 0.1 10^3/uL (0.0-0.2) 02/12/20 04:29 Seg Neutrophils % 53.3 % (42-78) 02/12/20 04:29 Sodium 139.4 mmol/L (137-145) 02/14/20 04:50 Potassium 4.1 mmol/L (3.6-5.0) 02/14/20 04:50 Chloride 107 mmol/L (98-107) 02/14/20 04:50 Carbon Dioxide 24 mmol/L (22-30) 02/14/20 04:50 Anion Gap 8 (5-19) 02/14/20 04:50 BUN 9 mg/dL (7-20) 02/14/20 04:50 Creatinine 0.87 mg/dL (0.52-1.25) 02/14/20 04:50 Est GFR ( Amer) > 60 (>60) 02/14/20 04:50 Est GFR (MDRD) Non-Af > 60 (>60) 02/14/20 04:50 Glucose 80 mg/dL (75-110) 02/14/20 04:50 Calcium 8.4 mg/dL (8.4-10.2) 02/14/20 04:50 Total Bilirubin 0.9 mg/dL (0.2-1.3) 02/14/20 04:50 Direct Bilirubin 0.3 mg/dL (0.0-0.4) 02/14/20 04:50 Neonat Total Bilirubin Not Reportable 02/14/20 04:50 Neonat Direct Bilirubin Not Reportable 02/14/20 04:50 Neonat Indirect Bili Not Reportable 02/14/20 04:50 AST 47 U/L (17-59) 02/14/20 04:50 ALT 98 U/L (<50) H 02/14/20 04:50 Alkaline Phosphatase 89 U/L (38-126) 02/14/20 04:50 Total Protein 5.7 g/dL (6.3-8.2) L 02/14/20 04:50 Albumin 3.4 g/dL (3.5-5.0) L 02/14/20 04:50 Lipase 85.1 U/L (23-300) 02/11/20 03:20 Urine Color YELLOW 02/11/20 03:20 Urine Appearance CLEAR 02/11/20 03:20 Urine pH 6.0 (5.0-9.0) 02/11/20 03:20 Ur Specific [place] 1.011 02/11/20 03:20 Urine Protein NEGATIVE mg/dL (NEGATIVE) 02/11/20 03:20 Urine Glucose (UA) NEGATIVE mg/dL (NEGATIVE) 02/11/20 03:20 Urine Ketones NEGATIVE mg/dL (NEGATIVE) 02/11/20 03:20 Urine Blood SMALL (NEGATIVE) H 02/11/20 03:20 Urine Nitrite NEGATIVE (NEGATIVE) 02/11/20 03:20 Urine Bilirubin NEGATIVE (NEGATIVE) 02/11/20 03:20 Urine Urobilinogen NEGATIVE mg/dL (<2.0) 02/11/20 03:20 Ur Leukocyte Esterase NEGATIVE (NEGATIVE) 02/11/20 03:20 Urine WBC (Auto) 0 /HPF 02/11/20 03:20 Urine RBC (Auto) 2 /HPF 02/11/20 03:20 Urine Mucus (Auto) RARE /LPF 02/11/20 03:20 Urine Ascorbic Acid NEGATIVE (NEGATIVE) 02/11/20 03:20 SARS-CoV-2 (PCR) NEGATIVE (NEGATIVE) 02/11/20 16:47
[2020-02-14 18:35] VITALS: BP 153/73
== END 2020-02-14 19:01 | disposition home or self-care (01) | DRG 419 ==
LOC: ER 20:44 → OBSVTOIN 02-11 04:34 → EH 02-11 04:34 → INTOOBSV 02-11 04:34 → 4S 02-11 07:45 → OBSVTOIN 02-12 14:50
PROVIDERS: ADMIT Surgery; ATTEND Surgery
PROC: 0FT44ZZ Resection of Gallbladder, Percutaneous Endoscopic Approach (ICD-10-PCS; principal; 2020-02-12 09:30)
DX: K80.00 Calculus of gallbladder with acute cholecystitis without obstruction (principal); K82.A1 Gangrene of gallbladder in cholecystitis; M06.9 Rheumatoid arthritis, unspecified; Z87.891 Personal history of nicotine dependence
CPT/HCPCS: 36415; 790; 80053; 81001; 83690; 85025; 85027; 87070; 87635; 88304; 99285; C9803; J1100; J1170; J1885; J2001; J2250; J2270; J2405; J2543; J2704; J2710; J3010; J3490; J7030; J7050; J7121; S0028

== ENCOUNTER → 2020-02-10 | Outpatient (CLI) | payer OTHER ==
[2020-02-10 10:18] LABS: HEMATOCRIT 44.9 % (37.9-51.0); HEMOGLOBIN 15.4 g/dL (13.5-17.0); MEAN CORPUSCULAR HEMOGLOBIN 29.1 pg (27.0-33.4); MEAN CORPUSCULAR HGB CONC 34.3 g/dL (32.0-36.0); MEAN CORPUSCULAR VOLUME 85 fl (80-97); PLATELET COUNT 271 10^3/uL (150-450); RED BLOOD COUNT 5.29 10^6/uL (4.35-5.55); WHITE BLOOD COUNT 7.7 10^3/uL (4.0-10.5)
[2020-02-10 10:38] LABS: ALBUMIN 4.5 g/dL (3.5-5.0); ALKALINE PHOSPHATASE 72 U/L (38-126); ANION GAP 10 (5-19); ASPARTATE AMINO TRANSFERASE 23 U/L (17-59); BILIRUBIN,TOTAL 0.8 mg/dL (0.2-1.3); BLOOD UREA NITROGEN 11 mg/dL (7-20); CALCIUM 9.5 mg/dL (8.4-10.2); CARBON DIOXIDE 27 mmol/L (22-30); CHLORIDE 102 mmol/L (98-107); GLUCOSE 106 mg/dL (75-110); POTASSIUM 4.6 mmol/L (3.6-5.0); TOTAL PROTEIN 7.3 g/dL (6.3-8.2)
--- NOTE | 2020-02-10 19:22 | RADIOLOGY REPORT (SQ) ---
EXAM DESCRIPTION: U/S ABDOMEN LIMITED W/O DOP IMAGES COMPLETED DATE/TIME: 02/10/2020 6:01 pm REASON FOR STUDY: (R10.11)RIGHT UPPER QUADRANT PAIN R10.13 EPIGASTRIC PAIN R10.11 RIGHT UPPER QUAD RANT PAIN COMPARISON: None. TECHNIQUE: Dynamic and static grayscale images acquired of the abdomen and recorded on PACS. Additio nal selected color Doppler and spectral images recorded. LIMITATIONS: None. FINDINGS: PANCREAS: There appears to be fatty infiltration. No masses. Duct is normal. LIVER: No masses. Echotexture normal. LIVER VASCULATURE: Normal directional flow of the main portal vein and hepatic veins. GALLBLADDER: Multiple stones, sludge, thickening of gallbladder wall to 5 mm. Distended gallbladder. ULTRASOUND-DETECTED JUDGE'S SIGN: Positive. INTRAHEPATIC DUCTS AND COMMON DUCT: CBD borderline at 6 mm and intrahepatic ducts normal caliber. No filling defects. AORTA: No aneurysm. Atherosclerosis. RIGHT KIDNEY: Normal size 12.2 cm. Normal echogenicity. No solid or suspicious masses. No hydronephr osis. No calcifications. PERITONEAL AND RIGHT PLEURAL SPACE: No ascites or effusions. OTHER: No other significant findings. IMPRESSION: Distended gallbladder with stones and wall thickening. Positive sonographic Judge sign . Borderline common bile duct. Correlate for cholecystitis. TECHNICAL DOCUMENTATION: JOB ID: [id number] [employer]- All Rights Reserved Reading location - IP/workstation name: [email or web address]
== END ==
LOC: OD 09:09
PROVIDERS: ATTEND Physician Assistant
DX: R10.11 Right upper quadrant pain (principal); R10.13 Epigastric pain
CPT/HCPCS: 36415; 76705; 80053; 83690; 85027